=== PATIENT | female | born 1980 | race Caucasian/White ===

== ENCOUNTER 2017-02-12 10:37 | Emergency (ER) | payer SELFPAY ==
--- NOTE | 2017-02-12 12:04 | RAD ---
Indication: LEFT distal fifth finger pain following crush injury this morning. Comparison: No relevant prior exams available [place] [facility] [place]. Technique: AP, lateral, and oblique views LEFT fifth finger REPORT AND IMPRESSION: Distal soft tissue swelling. No cortical disruption or suspicious trabecular irregularity to suggest fracture. Normal articular alignment.
--- NOTE | 2017-02-12 12:52 | UC ---
Upper Extremity HPI - HPI Summary HPI Summary: Patient presents to with left pinky pain, swelling and bruising after an object at work fell onto her finger. Denies numbness, tingling, temperature changes. She is able to move the finger, but with pain. Denies hand pain or wrist pain. - History of Current Complaint Chief Complaint: UCUpperExtremity Stated Complaint: HAND INJURY Time Seen by Provider: 02/12/17 12:09 Hx Obtained From: Patient Hx Last Menstrual Period: 01/31/17 ?: No Onset/Duration: Sudden Onset Severity Initially: Mild Severity Currently: Mild Pain Intensity: 1 Pain Scale Used: 0-10 Numeric Location Of Pain: Is Discrete @ - left distal pinky Aggravating Factor(s): Movement, Lifting, Flexion, Extension Alleviating Factor(s): Nothing Associated Signs And Symptoms: Positive: Swelling, Bruising Related History: Occupational Injury, Dominant Hand Right - Risk Factors Non-Orthopedic Risk Factor: Negative DVT Risk Factors: Negative Septic Arthritis Risk Factor: Negative Compartment Syndrome Risk Factors: Pain - Allergies/Home Medications Allergies/Adverse Reactions: Allergies Allergy/AdvReac Type Severity Reaction Status Date / Time No Known Allergies Allergy Verified 02/12/17 10:53 Home Medications: Home Medications NK [No Home Medications Reported] 02/12/17 [History Confirmed 02/12/17] PMH/Surg Hx/FS Hx/Imm Hx Previously Healthy: Yes - Surgical History Surgical History: Yes Surgery Procedure, Year, and Place: seretoma removal , t&a - Family History Known Family History: Positive: Unknown - Social History Occupation: Employed Full-time Lives: With Family Alcohol Use: Rare Substance Use Type: None Smoking Status (MU): Former Smoker Review of Systems Constitutional: Negative Skin: Bruising Eyes: Negative Respiratory: Negative Cardiovascular: Negative Motor: Decreased ROM Neurovascular: Negative Musculoskeletal: Arthralgia - pinky finger of left hand Neurological: Negative Psychological: Negative All Other Systems Reviewed And Are Negative: Yes Physical Exam Triage Information Reviewed: Yes Appearance: Well-Appearing, No Pain Distress, Well-Nourished Vital Signs: Initial Vital Signs Temp 97.7 F 02/12/17 10:48 Pulse 67 02/12/17 10:48 Resp 16 02/12/17 10:48 BP 143/91 02/12/17 10:48 Pulse Ox 98 06/13/17 10:48 Vital Signs Reviewed: Yes Eye Exam: Normal Neck exam: Normal Neck: Positive: Supple, Nontender, No Lymphadenopathy Respiratory Exam: Normal Respiratory: Positive: Chest non-tender, Lungs clear Cardiovascular Exam: Normal Cardiovascular: Positive: RRR Musculoskeletal Exam: Normal Musculoskeletal: Positive: Strength Intact, ROM Intact Neurological Exam: Normal Neurological: Positive: Alert Psychological: Positive: Normal Response To Family, Age Appropriate Behavior Skin Exam: Normal Upper Extremity Course/Dx - Course Course Of Treatment: left little finger with pain and ecchymosis. Xray negative for fx. Splint applied. Patient will follow up if symptoms worsen. She is OK with discharge. - Differential Dx/Diagnosis Differential Diagnosis/HQI/PQRI: Fracture (Open), Fracture (Closed), Strain Provider Diagnoses: finger contusion Discharge - Discharge Plan Condition: Stable Disposition: HOME Patient Education Materials: Contusion in Adults (ED) Referrals: Fernando Rowland MD [Primary Care Provider] - Additional Instructions: Follow up as needed Continue with finger splint at least for today You may use it for your comfort If pain becomes worse or you are unable to move the finger, please return to .
[2017-02-12 14:34] VITALS: BP 133/95
== END 2017-02-12 12:50 | disposition home or self-care (01) ==
LOC: UCEAST 10:37
DX: S60.052A Contusion of left little finger without damage to nail, initial encounter (principal); W20.8XXA Other cause of strike by thrown, projected or falling object, initial encounter; Y92.89 Other specified places as the place of occurrence of the external cause
CPT/HCPCS: 73140; 99212; G0463